=== PATIENT | female | born 1955 | race Caucasian/White ===

== ENCOUNTER 2017-06-16 09:39 | Observation (INO) ==
[2017-06-16] MEDS ORDERED: Ipratropium/Albuterol Neb 3 ML IH ONE (10:15)
[2017-06-16] MEDS ORDERED: predniSONE 20 MG TABLET PO ONE (10:16)
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
[2017-06-16] MEDS ORDERED: Levofloxacin 750 MG/150 ML 750 MG/150 ML BAG IVPB ONE (11:32)
[2017-06-16 12:02] LABS: Basophils % 0.2 %; Eosinophils # 0.3 K/mcL (0.0-0.6); Eosinophils % 2.5 %; Hematocrit 41.5 % (35.3-44.9); Hemoglobin 13.5 g/dL (11.5-15.4); Immature Granulocytes % 0.4 % (0-4); Lymphocytes # 1.7 K/mcL (0.6-4.6); Lymphocytes % 13.7 %; Mean Corpuscular HGB Conc 32.5 g/dL (31.6-35.5); Mean Corpuscular Hemoglobin 27.4 pg (28.0-33.3); Mean Corpuscular Volume 84.3 fL (83.0-100.0); Mean Platelet Volume 11.9 fL (9.4-12.4); Monocytes # 0.9 K/mcL (0.0-1.3); Monocytes % 7.4 %; Neutrophils # 9.3 K/mcL (1.6-8.9); Platelet Count 201 K/mcL (140-400); Red Blood Count 4.92 M/mcL (3.82-4.97); Segmented Neutrophils % 75.8 %
[2017-06-16 12:19] LABS: BUN/Creatinine Ratio 27 (6-26); Blood Urea Nitrogen 17 mg/dL (6-20); Calcium 9.6 mg/dL (8.6-10.3); Carbon Dioxide 27 mEq/L (23-29); Chloride 105 mEq/L (98-107); Glucose 111 mg/dL (70-105); Osmolality,Calculated 282 (280-300); Potassium 3.7 mEq/L (3.5-5.1); Sodium 135 mEq/L (136-145); eGFR For African Americans > 60 (> 60); eGFR For Non-African Americans > 60 (> 60)
[2017-06-16 12:39] LABS: Troponin I < 0.03 ng/mL (< 0.04)
[2017-06-16] MEDS ORDERED: Ondansetron 4 MG/2 ML VIAL IVP ONE (12:53)
[2017-06-16] MEDS ORDERED: *HR* FentaNYL (PF) 100 MCG/2 ML VIAL IVP ONE (12:53)
--- NOTE | 2017-06-16 14:00 | Internal Med History&Physical ---
<Alvaro Theodore - Last Filed: 06/16/17 16:35> Date of Encounter: 06/16/17 Time of Encounter: 14:05 Assessment and Plan (1) Community acquired pneumonia Current visit: Yes Status: Suspected Community acquired pneumonia, unnspecified organism Cough with increased sputum production, shortness of breath, WBC 12.3 with predominate neutrophils, SPO2 91% on room air CT chest demonstrates possible focal consolidations in the left lower lung Blood cultures and sputum cultures pending, Urine S. Pneumo and Legionella Ag pending The patient was started on IV Levaquin in the ED, which I think is appropriate We will continue Levaquin, trend BMP + CBC Scheduled duonebs + prn albuterol. Incentive spirometry to encourage deep inhalation Qualifiers: Laterality: left Lung location: lower lobe of lung Qualified Code(s): J18.1 - Lobar pneumonia, unspecified organism (2) COPD exacerbation Current visit: Yes Status: Acute COPD Exacerbation Continue scheduled Duonebs, prn albuterol Supplemental O2, titrate to SPO2 88-92% Prednisone PO 40mg x 5 days (3) Tibial plateau fracture, left Current visit: Yes Status: Acute LEFT Tibial plateau fracture seen on XR Orthopedics was consulted from the ED, requested CT of the L Knee which is pending Pain management pending ortho consult We will plan for PT/OT Consult pending Ortho recommendations Qualifiers: Encounter type: initial encounter Fracture type: closed Qualified Code(s) : S82.142A - Displaced bicondylar fracture of left tibia, initial encounter for closed fracture (4) Multiple rib fractures Current visit: Yes Status: Acute Right rib 5, 6, 7 non-discplaced fracture without associated pneumothorax These fractures do not compromise respiratory status outside of due to pain We will treat pain Qualifiers: Encounter type: initial encounter Fracture type: closed Laterality: right Qualified Code(s): S22.41XA - Multiple fractures of ribs, right side, initial encounter for closed fracture (5) Osteoporosis Current visit: Yes Status: Acute History of Osteopenia + Osteoporosis We will check PTH, Phosphorous, Ionized Calcium and Vitamin D in the morning May require supplementation Continue Calcium + Vitamin D3 tabs Qualifiers: Osteoporosis type: unspecified Presence of current pathological fracture: with current pathological fracture Encounter type: initial encounter Qualified Code(s): M80.00XA - Age-related osteoporosis with current pathological fracture, unspecified site, initial encounter for fracture (6) Adenoma of left adrenal gland Current visit: Yes Status: Acute B/L Adrenal adenoma found on CT Patient may have had symptoms with poorly controlled HTN and migraines 10 years ago She says those symptoms stopped after she began Lisinopril She will likely require full evaluation of this as an outpatient (7) Adenoma of right adrenal gland Current visit: Yes Status: Acute As above B/L Adrenal adenoma found on CT Patient may have had symptoms with poorly controlled HTN and migraines 10 years ago She says those symptoms stopped after she began Lisinopril She will likely require full evaluation of this as an outpatient (8) Pre-operative examination for internal medicine Current visit: Yes Status: Acute Moderate risk for surgery Patient RCRI Class II, cardiac risk low-moderate EKG shows Sinus arrhythmia with non-specific ST-T Depressions in V1-3 but without acute changes Last TTE 2003, however CXR shows Pulmonary vascular congestion and cardiomegaly We will repeat TTE to evaluate for CHF Pulmonary status is poor, significant COPD with exacerbation and vascular congestion It's possible this patient may require extubation to BiPAP due to severe COPD (9) DVT prophylaxis Current visit: Yes Status: Acute SQ [facility] Internal Medicine - H&P: HPI Chief complaint: Multiple fractures after fall Admitted From: Emergency Dept Plans for Post Hospital Care: Home History of present illness: Ms. Velásquez is a 61 year old female with history of arthritis, COPD, hypertension, hyperlipidemia, peripheral neuropathy and osteoporosis who presented to the ED due to severe pain after a fall. The patient says that on Tuesday she was on her daughter's patio in the backyard and suffered a mechanical fall due to tripping over an exercise bicycle. She says that at that time she twisted and landed on her back. Initially the pain was not too severe, however over the next several days she developed worsening pain to the point that today she was unable to bear any weight on her left knee at all. The pain is mostly centered around her left knee, right ribs, back. She says that the pain is so intense that she has a hard time breathing, and cannot bear weight. She does say that she has tried to take increased doses of Motrin which has been unsuccessful in managing the pain. She says that she recently had a fall about a month ago that was also mechanical in nature due to slipping and twisting her left knee at that time as well. At that time it was also a mechanical fall. Prior to that she never had a fall. She does say that she has had increased cough with sputum production and this time as well. She denies any fevers, chills, sweats, changes in appetite, nausea, vomiting. She has not had any chest pain or significant shortness of breath above baseline, however she does say it is difficult to breathe due to the pain in her ribs when she takes a deep breath. She was associated she has noticed some gurgling when she does take breaths. The patient does not use home O2. The patient does live at home with her daughter and several grandchildren, she admits to smoking about a half a pack to 1 pack a day for approximately 45 years, she does not drink alcohol, and she does not have any other explicit drug use. Past Med Surg Social Fam HX - Past Medical History Medical history: arthritis, COPD, hyperlipidemia, hypertension, osteoporosis, other Psychiatric history: anxiety, depression - Past Surgical History Surgical History: cholecystectomy, herniorrhaphy, hip replacement, hysterectomy - Social History Smoking Status: Current every day smoker Smokeless Tobacco Status: No Alcohol use: none Drug use: none - Family History Mother Living Status: Father Living Status: Internal Medicine - H&P: Meds Albuterol Sulfate [Ventolin Hfa] 2 puff IH Q4H PRN 04/05/15 [History] Atorvastatin [Lipitor] 40 mg PO QAM 04/05/15 [History] Calcium Carbonate/Vitamin D3 [Calcium 1,000 + D3 Caplet] 1 each PO TID 04/05/15 [History] Cyclobenzaprine [Flexeril] 5 mg PO TID PRN 04/05/15 [History] Gabapentin [Neurontin] 600 mg PO TID 04/05/15 [History] Labetalol [Trandate] 400 mg PO BID 04/05/15 [History] Lisinopril/Hydrochlorothiazide [Zestoretic 20-25 mg Tablet] 1 each PO QAM [History] Ranitidine HCl [Zantac] 150 mg PO BID 04/05/15 [History] Ipratropium/Albuterol Neb [Duoneb] 3 ml IH Q6HR 06/16/17 [History] Meloxicam [Mobic] 15 mg PO DAILY 06/16/17 [History] Potassium Chloride [K-Tab ER] 20 meq PO DAILY 06/16/17 [History] Umeclidinium Brm/Vilanterol Tr [Anoro Ellipta 62.5-25 Mcg INH] 1 puff IH DAILY 06/16/17 [History] 3 Allergy/AdvReac Type Severity Reaction Status Date / Time alendronate sodium Allergy See Verified 06/16/17 12:57 [From Fosamax] Comments simvastatin [From Zocor] Allergy Joint Pain Verified 06/16/17 12:57 acetaminophen [From Vicodin] AdvReac Vomiting Verified 06/16/17 12:57 hydrocodone [From Vicodin] AdvReac Vomiting Verified 06/16/17 12:57 ibuprofen [From Vicoprofen] AdvReac Nausea Verified 06/16/17 12:57 Penicillins AdvReac Itching Verified 06/16/17 12:57 All Systems PM: A 10-system review of systems was performed and is negative for pertinent findings except as documented above in the HPI. Review of systems: Constitutional: Denies fevers, chills, weight loss, generalized fatigue Head/Neck: Denies CATES, neck stiffness EENT: Denies vision changes/blurriness, rhinorrhea, congestion, sore throat CVS: Denies chest pain, palpitations, TAYLOR, orthopnea, edema, PND Pulm: Admits to chronic SOB, cough, increased sputum production, wheezing. Denies hemoptysis. GI: Denies abdominal pain, nausea, vomiting, diarrhea, constipation, melena, hematemasis : Admits to baseline urinary incontinence, with no changes in urinary habits Heme: Denies ease of bleeding or bruising MSK: Admits to significant joint pain as per history of present illness Skin: Denies rashes, ulcers, color changes Neuro: Admits to baseline peripheral neuropathy. Denies CATES, focal deficits, ataxia - Constitutional Vitals: Temp Pulse Resp BP Pulse Ox 98.6 F 80 16 135/70 93 06/16/17 09:50 06/16/17 12:50 06/16/17 13:51 06/16/17 13:51 06/16/17 12:50 Exam: Gen.: Vitals noted. No acute distress. AAOx3 HEENT: PERRL/EOMI, oropharynx clear, Normocephalic, atraumatic Neck: Supple. No adenopathy. Cardiac: RRR, no murmur, +S1/S2 Pulmonary: Substantial bilateral expiratory rhonchi, wheezing on inspiration and expiration, with superimposed Rales diffusely and a prolonged expiratory phase Abdomen: soft, nontender, BS noted, no guarding Back: Nontender throughout. MSK: The patient has tenderness to palpation of the right chest wall. Left LE is wrapped in margarita bandage with no obvious deformity. Distal sensation and motor function intact. Extremities: no BLE edema, nontender calf, no cyanosis or clubbing. MSK as above Neuro: A&Ox3, moves all extremities, no focal deficits Psych: Appropriate mood and behavior Internal Med - H&P Results - Labs CBC & Chem 7: 06/16/17 11:31 06/16/17 11:31 - Diagnostic Studies CT scan - chest Status: image reviewed by me Additional comments: CT Thoracic spine with significant motion artifact appears to demonstrate b/l ground glass appearance in lungs with possible focal consolidation in left lower lobe Chest x-ray Status: image reviewed by me Additional comments: CXR PA shows cardiomegaly with increased pulmonary vascular congestion <Ben Zamora - Last Filed: 06/16/17 17:16> Date of Encounter: 06/16/17 Internal Medicine - H&P: HPI History of present illness: Ms. Velásqeuz is a 61 year old female All Systems PM: A 10-system review of systems was performed and is negative for pertinent findings except as documented above in the HPI. - Constitutional Vitals: Temp Pulse Resp BP Pulse Ox 98.6 F 80 16 135/70 90 06/16/17 09:50 06/16/17 12:50 06/16/17 16:04 06/16/17 13:51 06/16/17 16:04 Internal Med - H&P Results - Labs CBC & Chem 7: 06/16/17 11:31 06/16/17 11:31 Labs: Urine 06/16/17 Range/Units 14:40 Urine Color Yellow (Yellow) Urine Clarity Clear (Clear) Urine pH 6.5 (5.0-8.0) pH Units Ur Specific [place] 1.013 (1.010-1.025) Urine Protein Negative (Neg-Trace) mg/dL Urine Glucose (UA) Normal (Normal) mg/dL - Attending Attestation I examined this patient and my medical decision-making was reviewed with the Resident Physician. I agree with the documented findings, disposition and treatment plan as described except to the extent set forth below Seen and examined at bedside, hx of COPD, OP 9no treatment due to side effects, ) HTN, Fatty liver, tobacco abuse,, admitted to observation following tibia plateau fracture and multiple rib fractures. Also endorsed worsening cough with sputum production. Chest exam with diffuse wheezing and rhonchi worse in both bases. Imaging shows cardiomegaly with bilateral PVC, Bilateral adrenal adenomas , diffuse osteopenia. DJD. Agree with treatment for suspected PNA, COPDE, Check Vit D levels, Obtain ECHO, fluid restriction, continue home meds, Pain control, incentive spirometry, bilateral adenoma eval as out-patient, ortho eval Rest as in the resident physician's documentation
[2017-06-16] MEDS ORDERED: Naloxone 0.4 MG/ML INJ IVP PRN (14:03)
[2017-06-16 15:43] LABS: Bilirubin,Urine Negative (Negative); Blood,Urine Negative (Negative); Clarity,Urine Clear (Clear); Color,Urine Yellow (Yellow); Glucose,Urine (UA) Normal (Normal); Ketones,Urine Negative (Negative); Leukocyte Esterase,Urine Negative (Negative); Nitrite,Urine Negative (Negative); PH,Urine 6.5 pH Units (5.0-8.0); Protein,Urine Negative (Neg-Trace); Specific Gravity,Urine 1.013 (1.010-1.025); Urobilinogen,Urine Normal (Normal)
[2017-06-16] MEDS: Gabapentin 300 MG CAPSULE PO SCH ×2 (15:49→20:28)
[2017-06-16] MEDS: Ipratropium/Albuterol Neb 3 ML IH SCH ×2 (16:02→20:07)
[2017-06-16] MEDS ORDERED: Ipratropium/Albuterol Neb 3 ML IH SCH (18:00)
[2017-06-16] MEDS: *HR* Enoxaparin 30 MG/0.3 ML SYRINGE SQ SCH (18:13)
[2017-06-16] MEDS ORDERED: Perflutren Lipid Microsphere 1.3 ML in 0.9 % Sodium Chloride 8.7 ML IVP ONE (18:18)
[2017-06-16] MEDS ORDERED: Perflutren Lipid Microsphere 2 ML VIAL ONE (18:30)
[2017-06-16] MEDS: *HR* OxyCODONE Immed Rel 5 MG TABLET PO PRN (18:54)
--- NOTE | 2017-06-16 19:46 | Orthopedic Consult Note ---
Date of Encounter: 06/16/17 Time of Encounter: 19:44 Assessment and Plan (1) Tibial plateau fracture, left Current Visit: Yes Status: Acute I did discuss the diagnosis in detail with the patient. She has a lateral tibial plateau fracture which is nondisplaced on the left. My recommendation is to proceed with nonoperative management. She is placed in a posterior long- leg splint and we will apply a knee immobilizer over this. Nonweightbearing to left lower extremity. X-ray in 1 week to evaluate for displacement. Rib fractures per the primary team. Orthopedically stable for discharge. Follow- up in the office in 1 week for clinical and radiographic reevaluation. I will be available as needed. Qualifiers: Encounter type: initial encounter Fracture type: closed Qualified Code(s) : S82.142A - Displaced bicondylar fracture of left tibia, initial encounter for closed fracture History of Present Illness HPI: Ms. Velásquez is a 61 year old female who is admitted to the hospitalist after a non-syncopal fall resulted in a left tibial plateau fracture. I was consulted to assist in the evaluation and management of this patient. The fall happened earlier today and she endorsed left knee pain. She also sustained rib fractures on the right. She complains of these as isolated injuries. No headaches, neck pain, abdominal pain, bilateral partially pain, and right lower extremity pain. The left knee pain is sharp in nature and achy. It is well localized. No numbness, tingling, or other signs or symptoms. The pain is worse with movement of the left lower extremity and better with rest. Past Med Surg Social Fam HX - Past Medical History Medical history: arthritis, COPD, hyperlipidemia, hypertension, osteoporosis, other Psychiatric history: anxiety, depression - Past Surgical History Surgical History: cholecystectomy, herniorrhaphy, hip replacement, hysterectomy - Social History Smoking Status: Current every day smoker Packs per day: 1 Smokeless Tobacco Status: No Alcohol use: none Drug use: none - Family History Mother Living Status: Father Living Status: Medications and Allergies Albuterol Sulfate [Ventolin Hfa] 2 puff IH Q4H PRN 04/05/15 [History] Atorvastatin [Lipitor] 40 mg PO QAM 04/05/15 [History] Calcium Carbonate/Vitamin D3 [Calcium 1,000 + D3 Caplet] 1 each PO TID 04/05/15 [History] Cyclobenzaprine [Flexeril] 5 mg PO TID PRN 04/05/15 [History] Gabapentin [Neurontin] 600 mg PO TID 04/05/15 [History] Labetalol [Trandate] 400 mg PO BID 04/05/15 [History] Lisinopril/Hydrochlorothiazide [Zestoretic 20-25 mg Tablet] 1 each PO QAM [History] Ranitidine HCl [Zantac] 150 mg PO BID 04/05/15 [History] Ipratropium/Albuterol Neb [Duoneb] 3 ml IH Q6HR 06/16/17 [History] Meloxicam [Mobic] 15 mg PO DAILY 06/16/17 [History] Potassium Chloride [K-Tab ER] 20 meq PO DAILY 06/16/17 [History] Umeclidinium Brm/Vilanterol Tr [Anoro Ellipta 62.5-25 Mcg INH] 1 puff IH DAILY 06/16/17 [History] 3 Allergy/AdvReac Type Severity Reaction Status Date / Time alendronate sodium Allergy See Verified 06/16/17 12:57 [From Fosamax] Comments simvastatin [From Zocor] Allergy Joint Pain Verified 06/16/17 12:57 acetaminophen [From Vicodin] AdvReac Vomiting Verified 06/16/17 12:57 hydrocodone [From Vicodin] AdvReac Vomiting Verified 06/16/17 12:57 ibuprofen [From Vicoprofen] AdvReac Nausea Verified 06/16/17 12:57 Penicillins AdvReac Itching Verified 06/16/17 12:57 All Systems Reviewed: The remainder of the systems were reviewed and are negative Physical Exam - Constitutional Vitals: Temp Pulse Resp BP Pulse Ox 98.6 F 80 16 135/70 90 06/16/17 09:50 06/16/17 12:50 06/16/17 16:04 06/16/17 13:51 06/16/17 16:04 Constitutional -Vitals reviewed -The patient is well developed and well nourished. -Mood is pleasant. -The patient is well groomed. Psychiatric -The patient is fully alert and oriented x 3. Respiratory: -Respiratory effort normal Abdomen: -Soft abdomen -Non tender -Non distended: Left upper extremity: -No deformities. The overlying skin is intact. No obvious signs of acute trauma. -No tenderness to palpation throughout. -No significant pain with passive motion of the shoulder, elbow, wrist, and fingers within the limits of the bed. -Able to make an "OK" sign, cross the index and long fingers, and extend the thumb. -Sensation grossly intact to light touch throughout the median, radial, and ulnar distributions. -Radial pulse is present; Fingers have good capillary refill. Right upper extremity: -No deformities. The overlying skin is intact. No obvious signs of acute trauma. -No tenderness to palpation throughout. -No significant pain with passive motion of the shoulder, elbow, wrist, and fingers within the limits of the bed. -Able to make an "OK" sign, cross the index and long fingers, and extend the thumb. -Sensation grossly intact to light touch throughout the median, radial, and ulnar distributions. -Radial pulse is present; Fingers have good capillary refill. Left lower extremity: -No deformities. The overlying skin is intact. No obvious signs of acute trauma. -Tenderness to palpation over the proximal lateral tibia with a palpable knee effusion. -Thigh and leg compartments are soft and compressible. -I did not range the knee given her known injury. -No pain with passive motion of the hip, ankle, and toes within the limits of the bed. -No pain with axial loading of the thigh. -Able to dorsiflex and plantarflex the ankle and toes. -Sensation is grossly intact to light touch throughout the sural, saphenous, superficial peroneal, and deep peroneal distributions. -Toes have good capillary refill. Right lower extremity: -No deformities. The overlying skin is intact. No obvious signs of acute trauma. -No tenderness to palpation throughout. -No pain with passive motion of the hip, knee, ankle, and toes within the limits of the bed. -No pain with axial loading of the thigh. -Able to dorsiflex and plantarflex the ankle and toes. -Sensation is grossly intact to light touch throughout the sural, saphenous, superficial peroneal, and deep peroneal distributions. -Toes have good capillary refill. X-rays of the left knee as well as CT scan shows a nondisplaced lateral tibial plateau fracture Results - Labs Result Diagrams: 06/16/17 11:31 06/16/17 11:31 Labs: Abnormal lab results WBC 12.3 K/mcL (4.3-11.1) H 06/16/17 11:31 MCH 27.4 pg (28.0-33.3) L 06/16/17 11:31 RDW 15.0 % (11.5-14.5) H 06/16/17 11:31 Neutrophils # 9.3 K/mcL (1.6-8.9) H 06/16/17 11:31 Sodium 135 mEq/L (136-145) L 06/16/17 11:31 BUN/Creatinine Ratio 27 (6-26) H 06/16/17 11:31 Glucose 111 mg/dL (70-105) H 06/16/17 11:31 All other labs normal. Consult Discharge Plan - Plan Referrals: Noemi Huddleston [Primary Care Provider] -
[2017-06-17] MEDS: Ipratropium/Albuterol Neb 3 ML IH SCH ×6 (01:00→20:44)
[2017-06-17] MEDS: *HR* OxyCODONE Immed Rel 5 MG TABLET PO PRN ×4 (01:21→23:28)
[2017-06-17] MEDS: *HR* Enoxaparin 30 MG/0.3 ML SYRINGE SQ SCH ×2 (05:30→19:23)
[2017-06-17 06:26] LABS: Hematocrit 41.5 % (35.3-44.9); Hemoglobin 12.9 g/dL (11.5-15.4); Mean Corpuscular HGB Conc 31.1 g/dL (31.6-35.5); Mean Corpuscular Hemoglobin 26.9 pg (28.0-33.3); Mean Corpuscular Volume 86.6 fL (83.0-100.0); Mean Platelet Volume 11.9 fL (9.4-12.4); Platelet Count 209 K/mcL (140-400); Red Blood Count 4.79 M/mcL (3.82-4.97); Red Cell Distribution Width 15.1 % (11.5-14.5)
[2017-06-17 06:33] LABS: Alanine Aminotransferase 15 Units/L (7-52); Albumin 3.7 g/dL (3.5-5.7); Albumin/Globulin Ratio 1.3 (1.1-2.2); Alkaline Phosphatase 106 Units/L (34-104); Aspartate Amino Transferase 10 Units/L (13-39); BUN/Creatinine Ratio 24 (6-26); Bilirubin,Total 0.3 mg/dL (0.3-1.0); Blood Urea Nitrogen 16 mg/dL (6-20); Calcium 9.2 mg/dL (8.6-10.3); Carbon Dioxide 28 mEq/L (23-29); Chloride 100 mEq/L (98-107); Globulin 2.8 g/dL (2.4-3.5); Glucose 139 mg/dL (70-105); Osmolality,Calculated 291 (280-300); Phosphorous 3.1 mg/dL (2.7-4.5); Potassium 3.2 mEq/L (3.5-5.1); Sodium 139 mEq/L (136-145); Total Protein 6.5 g/dL (6.4-8.9); eGFR For African Americans > 60 (> 60); eGFR For Non-African Americans > 60 (> 60)
[2017-06-17 06:47] LABS: Thyroid Stimulating Hormone 0.735 mcIU/mL (0.340-5.600)
[2017-06-17] MEDS: Levofloxacin 750 MG/150 ML 750 MG/150 ML BAG IVPB SCH (08:13)
[2017-06-17] MEDS: predniSONE 20 MG TABLET PO SCH (08:15)
[2017-06-17] MEDS: Gabapentin 300 MG CAPSULE PO SCH ×3 (08:15→20:46)
[2017-06-17] MEDS: Cholecalciferol (D-3) 1,000 UNIT TABLET PO SCH (08:16)
[2017-06-17] MEDS: Pantoprazole 40 MG VIAL IVP SCH (08:16)
[2017-06-17] MEDS ORDERED: Patient Taking Own Medication 1 EACH IH SCH (09:00)
[2017-06-17 09:23] LABS: Magnesium 1.9 mg/dL (1.6-2.6)
--- NOTE | 2017-06-17 13:31 | Internal Med Progress Note ---
<Alvaro Theodore - Last Filed: 06/17/17 13:27> Date of Encounter: 06/17/17 Time of Encounter: 09:30 - Assessment and plan (1) Community acquired pneumonia Current Visit: Yes Status: Suspected Assessment and plan: Community acquired pneumonia, unnspecified organism Cough with increased sputum production, shortness of breath, WBC 11.0 with predominate neutrophils, SPO2 91% on room air CT chest demonstrates possible focal consolidations in the left lower lung Blood cultures and sputum cultures pending, Urine S. Pneumo and Legionella Ag pending The patient was started on IV Levaquin in the ED, which I think is appropriate We will continue Levaquin, trend BMP + CBC Scheduled duonebs + prn albuterol. Incentive spirometry to encourage deep inhalation Qualifiers: Laterality: left Lung location: lower lobe of lung Qualified Code(s): J18.1 - Lobar pneumonia, unspecified organism (2) COPD exacerbation Current Visit: Yes Status: Acute Assessment and plan: COPD Exacerbation Continue scheduled Duonebs, prn albuterol Supplemental O2, titrate to SPO2 88-92% Prednisone PO 40mg Day 2 of 5 days (3) Tibial plateau fracture, left Current Visit: Yes Status: Acute Assessment and plan: Left Tibial plateau fracture Orthopedic surgery recommends nonoperative therapy Splinting with non-weight bearing PT/OT Evaluation today Follow-up as outpatient Qualifiers: Encounter type: initial encounter Fracture type: closed Qualified Code(s) : S82.142A - Displaced bicondylar fracture of left tibia, initial encounter for closed fracture (4) Multiple rib fractures Current Visit: Yes Status: Acute Assessment and plan: Right rib 5, 6, 7 non-discplaced fracture without associated pneumothorax These fractures do not compromise respiratory status outside of due to pain We will treat pain Qualifiers: Encounter type: initial encounter Fracture type: closed Laterality: right Qualified Code(s): S22.41XA - Multiple fractures of ribs, right side, initial encounter for closed fracture (5) Osteoporosis Current Visit: Yes Status: Acute Assessment and plan: Hx of osteoporosis and osteopenia Continue calcium supplement We will give 50,000u Vitamin D Qualifiers: Osteoporosis type: unspecified Presence of current pathological fracture: with current pathological fracture Encounter type: initial encounter Qualified Code(s): M80.00XA - Age-related osteoporosis with current pathological fracture, unspecified site, initial encounter for fracture (6) Adenoma of left adrenal gland Current Visit: Yes Status: Acute Assessment and plan: B/L Adrenal adenoma found on CT Patient may have had symptoms with poorly controlled HTN and migraines 10 years ago She says those symptoms stopped after she began Lisinopril She will likely require full evaluation of this as an outpatient (7) Adenoma of right adrenal gland Current Visit: Yes Status: Acute Assessment and plan: As above (8) Hyperparathyroidism Current Visit: Yes Status: Acute Assessment and plan: Hyperparathyroidism, likely primary High normal serum calcium, PTH 89.9, Phos 3.1, Vitamin D 10 The patient has multiple fractures, and history of osteoporosis Given comorbid b/l adrenal adenomas found on CT, MEN Type 1 remains in the differential We will refer to endocrinology at time of discharge (9) DVT prophylaxis Current Visit: Yes Status: Acute Assessment and plan: SQ Lovenox - Subjective Interval history: The patient is resting comfortably in bed at time of examination. She says that she still having significant pain, specifically in the right ribs. She is concerned that this is preventing her from being able to cough or breathing effectively. She has not been coughing up purulent sputum as much as she feels she needs to. She was not using incentive spirometry overnight. - Constitutional Vitals: Temp Pulse Resp BP Pulse Ox 97.6 F 75 22 104/54 97 06/17/17 12:28 06/17/17 12:28 06/17/17 12:28 06/17/17 12:28 06/17/17 12:28 Exam: Gen.: Vitals noted. No acute distress. AAOx3 HEENT: Normocephalic, atraumatic Neck: Supple. No adenopathy. Cardiac: RRR, no murmur, +S1/S2 Pulmonary: Substantial bilateral expiratory rhonchi, wheezing on inspiration and expiration, with superimposed Rales diffusely and a prolonged expiratory phase Abdomen: soft, nontender, BS noted, no guarding Back: Nontender throughout. MSK: The patient has tenderness to palpation of the right chest wall. Left LE is wrapped in margarita bandage with no obvious deformity. Distal sensation and motor function intact. Extremities: no BLE edema, nontender calf, no cyanosis or clubbing. Left leg wrapped in margarita bandage. appropriate motor and sensory function Neuro: A&Ox3, moves all extremities, no focal deficits Psych: Appropriate mood and behavior Internal Medicine: Result - Labs CBC & Chem 7: 06/17/17 05:49 06/17/17 05:49 Labs: Short CBC 06/17/17 Range/Units 05:49 WBC 11.0 (4.3-11.1) K/mcL Hgb 12.9 (11.5-15.4) g/dL Hct 41.5 (35.3-44.9) % Plt Count 209 (140-400) K/mcL BMP 06/17/17 05:49 Sodium 139 Potassium 3.2 L Chloride 100 Carbon Dioxide 28 BUN 16 Creatinine 0.67 Glucose 139 H Calcium 9.2 Liver Function 06/17/17 Range/Units 05:49 Total Bilirubin 0.3 (0.3-1.0) mg/dL AST 10 L (13-39) Units/L ALT 15 (7-52) Units/L Alkaline Phosphatase 106 H (34-104) Units/L Albumin 3.7 (3.5-5.7) g/dL Urine 06/16/17 Range/Units 14:40 Urine Color Yellow (Yellow) Urine Clarity Clear (Clear) Urine pH 6.5 (5.0-8.0) pH Units Ur Specific [place] 1.013 (1.010-1.025) Urine Protein Negative (Neg-Trace) mg/dL Urine Glucose (UA) Normal (Normal) mg/dL Consult Discharge Plan - Plan Additional Instructions: Patient would like to be seen by Dr. Theodore in the [facility] Referrals: Noemi Huddleston [Primary Care Provider] - Roxanne Patten MD [Partnered Physician] - <Ben Zamora - Last Filed: 06/17/17 14:11> Date of Encounter: 06/17/17 - Constitutional Vitals: Temp Pulse Resp BP Pulse Ox 97.6 F 75 22 104/54 97 06/17/17 12:28 06/17/17 12:28 06/17/17 12:28 06/17/17 12:28 06/17/17 12:28 Internal Medicine: Result - Labs CBC & Chem 7: 06/17/17 05:49 06/17/17 05:49 Labs: Short CBC 06/17/17 Range/Units 05:49 WBC 11.0 (4.3-11.1) K/mcL Hgb 12.9 (11.5-15.4) g/dL Hct 41.5 (35.3-44.9) % Plt Count 209 (140-400) K/mcL BMP 06/17/17 05:49 Sodium 139 Potassium 3.2 L Chloride 100 Carbon Dioxide 28 BUN 16 Creatinine 0.67 Glucose 139 H Calcium 9.2 Liver Function 06/17/17 Range/Units 05:49 Total Bilirubin 0.3 (0.3-1.0) mg/dL AST 10 L (13-39) Units/L ALT 15 (7-52) Units/L Alkaline Phosphatase 106 H (34-104) Units/L Albumin 3.7 (3.5-5.7) g/dL Urine 06/16/17 Range/Units 14:40 Urine Color Yellow (Yellow) Urine Clarity Clear (Clear) Urine pH 6.5 (5.0-8.0) pH Units Ur Specific [place] 1.013 (1.010-1.025) Urine Protein Negative (Neg-Trace) mg/dL Urine Glucose (UA) Normal (Normal) mg/dL - Attending Attestation I examined this patient and my medical decision-making was reviewed with the Resident Physician. I agree with the documented findings, disposition and treatment plan as described except to the extent set forth below Seen and examined at bedside She is being manged for suspected PNA, COPDE, Rib fractures, L tibial plateau fracture No new complains Say she still cannot produce sputum Continue treatment for suspected PNA, COPDE, Vit D is low, replaced with high dose, Follow ECHO reports , fluid restriction, continue home meds, Pain control , incentive spirometry, bilateral adenoma eval as out-patient, ortho eval noted and appreciated Rest as in the resident physician's documentation
--- NOTE | 2017-06-17 16:20 | Event Note ---
Date of Encounter: 06/17/17 Time of Encounter: 15:50 I was called to the bedside by the nurse who reported that the patient was complaining of dizziness and a feeling that she would fall out of bed, along with a sensation that she had forgotten how to swallow. When questioned, the patient says that she got suddenly cold, sweaty, and dizzy before feeling like she was going to fall out of her bed. She says that in addition to this, she felt that she had forgotten how to swallow. This lasted for approximately 10 min , and occurred twice. She says that immediately before this event, she was walking with PT/OT. This has never happened to her before. She did not lose consciousness. Upon being paged, I ordered stat EKG, Blood glucose, troponin, and ABG. The patient has no neurological abnormalities or deficits. Vitals were obtained, and they were in normal range. EKG did show sinus rhythm with ST-T wave changes in lateral leads, including flattening of ST-T waves in V1-2 and J- point elevation in Lead II. The patient was placed on telemetry. I believe that this is likely due to symptomatic hypotension vs. vasovagal phenomenon. I will trend troponins, and we will monitor for changes in neurological status. Additionally, I will hold the patient's Labetalol to prevent episodes of hypotension from occurring. I spoke at length with the patient and she understands the current workup and treatment plan. All questions were answered.
[2017-06-17 16:44] LABS: ABG Base Excess 6 mEq/L (-2 to 3); ABG HCO3 31 mEq/L (21-27); ABG Oxygen Saturation 90 % (95-98); ABG PCO2 48 mmHg (35-45); ABG PH 7.42 pH Units (7.32-7.45); ABG PO2 58 mmHg (85-104); ABG TCO2 33 mEq/L (20-26)
[2017-06-18] MEDS: Ipratropium/Albuterol Neb 3 ML IH SCH ×4 (00:12→11:42)
[2017-06-18] MEDS: *HR* OxyCODONE Immed Rel 5 MG TABLET PO PRN ×2 (05:28→11:46)
[2017-06-18] MEDS: *HR* Enoxaparin 30 MG/0.3 ML SYRINGE SQ SCH (05:28)
[2017-06-18 05:42] LABS: Basophils % 0.1 %; Eosinophils # 0.1 K/mcL (0.0-0.6); Eosinophils % 0.7 %; Hematocrit 39.5 % (35.3-44.9); Hemoglobin 12.6 g/dL (11.5-15.4); Immature Granulocytes % 0.7 % (0-4); Lymphocytes % 19.6 %; Mean Corpuscular HGB Conc 31.9 g/dL (31.6-35.5); Mean Corpuscular Hemoglobin 27.2 pg (28.0-33.3); Mean Corpuscular Volume 85.3 fL (83.0-100.0); Mean Platelet Volume 11.7 fL (9.4-12.4); Monocytes # 0.8 K/mcL (0.0-1.3); Monocytes % 7.5 %; Neutrophils # 7.2 K/mcL (1.6-8.9); Platelet Count 207 K/mcL (140-400); Red Blood Count 4.63 M/mcL (3.82-4.97); Red Cell Distribution Width 15.1 % (11.5-14.5); Segmented Neutrophils % 71.4 %
[2017-06-18 06:03] LABS: BUN/Creatinine Ratio 26 (6-26); Blood Urea Nitrogen 18 mg/dL (6-20); Calcium 9.4 mg/dL (8.6-10.3); Carbon Dioxide 29 mEq/L (23-29); Chloride 102 mEq/L (98-107); Glucose 126 mg/dL (70-105); Osmolality,Calculated 287 (280-300); Potassium 3.9 mEq/L (3.5-5.1); Sodium 137 mEq/L (136-145); eGFR For African Americans > 60 (> 60); eGFR For Non-African Americans > 60 (> 60)
[2017-06-18] MEDS: Levofloxacin 750 MG/150 ML 750 MG/150 ML BAG IVPB SCH (08:23)
[2017-06-18 08:29] VITALS: BP 147/88
[2017-06-18] MEDS: Pantoprazole 40 MG VIAL IVP SCH (08:29)
[2017-06-18] MEDS: predniSONE 20 MG TABLET PO SCH (08:33)
[2017-06-18] MEDS: Gabapentin 300 MG CAPSULE PO SCH (08:34)
[2017-06-18] MEDS: Cholecalciferol (D-3) 1,000 UNIT TABLET PO SCH (08:34)
[2017-06-18 08:50] LABS: VBG HCO3 30 mEq/L (21-27); VBG Ionized Calcium 1.13 mmol/L (1.15-1.35); VBG PCO2 55 mmHg (41-51); VBG PH 7.34 pH Units (7.32-7.42); VBG PO2 64 mmHg (25-50)
--- NOTE | 2017-06-18 09:22 | Discharge Summary ---
<Alvaro Theodore - Last Filed: 06/18/17 11:34> - NOTES TO OUTPATIENT PROVIDER Notes to Outpatient Provider: The patient was admitted for multiple rib fractures, CAP, and COPDE. She does have a history of osteoporosis which has not been explained previously. On CT of the abdomen, b/l adrenal adenomas were found, and PTH studies seem to indicate a possible primary hyperparathyroidism. We did replete Vitamin D, however she will likely require workup for PTH disorders. We did give a referral to Endocrinology. Orders not resulted at time of discharge: Pending orders 06/16/17 14:27 Culture,Blood [BC] Stat 06/16/17 14:58 Sputum Culture [Culture,Sputum with Gram Stain] [RM] Routine 06/17/17 11:44 Parathormone Related Peptide AM 0400 Date of Encounter: 06/18/17 Time of Encounter: 08:40 - Discharge Diagnosis (1) Tibial plateau fracture, left Priority: Primary Status: Acute Qualifiers: Encounter type: initial encounter Fracture type: closed Qualified Code(s) : S82.142A - Displaced bicondylar fracture of left tibia, initial encounter for closed fracture (2) Community acquired pneumonia Priority: Secondary Status: Suspected Qualifiers: Laterality: left Lung location: lower lobe of lung Qualified Code(s): J18.1 - Lobar pneumonia, unspecified organism (3) COPD exacerbation Priority: Secondary Status: Acute (4) Multiple rib fractures Priority: Secondary Status: Acute Qualifiers: Encounter type: initial encounter Fracture type: closed Laterality: right Qualified Code(s): S22.41XA - Multiple fractures of ribs, right side, initial encounter for closed fracture (5) Osteoporosis Priority: Secondary Status: Acute Qualifiers: Osteoporosis type: unspecified Presence of current pathological fracture: with current pathological fracture Encounter type: initial encounter Qualified Code(s): M80.00XA - Age-related osteoporosis with current pathological fracture, unspecified site, initial encounter for fracture (6) Adenoma of left adrenal gland Priority: Secondary Status: Acute (7) Adenoma of right adrenal gland Priority: Secondary Status: Acute (8) Hyperparathyroidism Priority: Secondary Status: Acute (9) DVT prophylaxis Priority: Secondary Status: Acute Hospital course: Ms. Velásquez is a 61 year old female with history of arthritis, COPD, hypertension, hyperlipidemia, peripheral neuropathy and osteoporosis who presented to the ED due to severe pain after a mechanical fall. According to the patient, she turned around and then slipped and fell over an exercise bike injuring both her right ribs and her left knee. On arrival, it was found that she had multiple rib fractures including the right fifth sixth and seventh rib, as well as a left tibial plateau fracture. She was evaluated by orthopedic surgery who determined that she is a good candidate for outpatient physical therapy. At the time of admission it was also noted that the patient had significant cough and dyspnea, and her CT looked like it demonstrated a possible consolidation in the left lower lobe significant for pneumonia. She also does have a history of COPD, severity is a component of COPD exacerbation as well. The patient was being treated for this with IV Levaquin, and prednisone. Finally, on CT of the thoracic and lumbar spine, it was noted that the patient does seem to have bilateral adrenal adenomas which were previously unknown. Due to the patient's osteoporosis, we did look into secondary causes. The patient typically runs high normal to high in calcium, and it was found that she does have an elevation in PTH with a normal phosphorus. Additionally her vitamin D was substantially low. This is suspicious for primary hyperparathyroidism, which in conjunction with her adrenal adenomas may be indicative of MEN1 or other endocrinological syndrome. The patient was given a referral to endocrinology on her discharge. At the time of discharge, she has returned nearly to her baseline respiratory status. She will be discharged to home with completion of antibiotic and steroid course, with short-term pain medication, referral to endocrinology, and close follow-up with primary care. She should be seen by primary care within 3-5 days. The patient understands and agrees to this plan. Discharge discussed with: patient, family Time spent discussing smoking cessation with patient: more than 10 minutes - Time Spent with Patient Total time spent providing and/or coordinating discharge services: - Discharge Medications Prescriptions: Ipratropium/Albuterol Neb [Duoneb] 3 ml IH [id number] 12 Days inhsol OxyCODONE Immed Rel [Roxicodone 5 MG] 10 mg PO Q8HR PRN 3 Days #9 tablet PRN Reason: Severe Pain Ergocalciferol (VITAMIN D2) [Vitamin D2] 50,000 unit PO QWEEK #3 capsule GuaiFENesin ER [Mucinex] 600 mg PO BID 12 Days tbbp.12hr levoFLOXacin [Levaquin] 750 mg PO DAILY #2 tablet predniSONE [PredniSONE] 40 mg PO DAILY #4 tablet Home Medications: Albuterol Sulfate [Ventolin Hfa] 2 puff IH Q4H PRN 04/05/15 [History] Atorvastatin [Lipitor] 40 mg PO QAM 04/05/15 [History] Calcium Carbonate/Vitamin D3 [Calcium 1,000 + D3 Caplet] 1 each PO TID 04/05/15 [History] Cyclobenzaprine [Flexeril] 5 mg PO TID PRN 04/05/15 [History] Gabapentin [Neurontin] 600 mg PO TID 04/05/15 [History] Labetalol [Trandate] 200 mg PO BID 04/05/15 [History] Lisinopril/Hydrochlorothiazide [Zestoretic 20-25 mg Tablet] 1 each PO QAM [History] Ranitidine HCl [Zantac] 150 mg PO BID 04/05/15 [History] Ipratropium/Albuterol Neb [Duoneb] 3 ml IH Q6HR 06/16/17 [History] Meloxicam [Mobic] 15 mg PO DAILY 06/16/17 [History] Potassium Chloride [K-Tab ER] 20 meq PO DAILY 06/16/17 [History] Umeclidinium Brm/Vilanterol Tr [Anoro Ellipta 62.5-25 Mcg INH] 1 puff IH DAILY 06/16/17 [History] Cholecalciferol (D-3) [Vitamin D] 1,000 unit PO DAILY tablet 06/18/17 [Rx] Ergocalciferol (VITAMIN D2) [Vitamin D2] 50,000 unit PO QWEEK #3 capsule [Rx] GuaiFENesin ER [Mucinex] 600 mg PO BID 12 Days tbbp.12hr 06/18/17 [Rx] Ipratropium/Albuterol Neb [Duoneb] 3 ml IH [id number] 12 Days inhsol 06/18/17 [Rx] OxyCODONE Immed Rel [Roxicodone 5 MG] 10 mg PO Q8HR PRN 3 Days #9 tablet [Rx] levoFLOXacin [Levaquin] 750 mg PO DAILY #2 tablet 06/18/17 [Rx] predniSONE [PredniSONE] 40 mg PO DAILY #4 tablet 06/18/17 [Rx] Allergies/Adverse Reactions: 3 Allergy/AdvReac Type Severity Reaction Status Date / Time alendronate sodium Allergy See Verified 06/16/17 12:57 [From Fosamax] Comments simvastatin [From Zocor] Allergy Joint Pain Verified 06/16/17 12:57 acetaminophen [From Vicodin] AdvReac Vomiting Verified 06/16/17 12:57 hydrocodone [From Vicodin] AdvReac Vomiting Verified 06/16/17 12:57 ibuprofen [From Vicoprofen] AdvReac Nausea Verified 06/16/17 12:57 Penicillins AdvReac Itching Verified 06/16/17 12:57 Date of admission: 06/16/17 13:36 Primary care physician: Noemi Huddleston Consults: 06/17/17 08:45 Consult to Physical Therapy [CONS] Routine Comment: Evaluate, develop and implement POC Reason for Consult: Discharge planning Does patient have active BEDREST order?: No Is patient medically & hemodynamically stable?: Yes Discharging clinician: Alvaro Theodore Anticipated date of discharge: 06/18/17 - Constitutional Vitals: Temp Pulse Resp BP Pulse Ox 97.6 F 84 16 147/88 96 06/18/17 08:24 06/18/17 08:24 06/18/17 08:24 06/18/17 08:24 06/18/17 08:24 Exam: Gen: Vitals noted. No acute distress. AAOx3 HEENT: Normocephalic, atraumatic Neck: Supple. No adenopathy. Cardiac: RRR, no murmur, +S1/S2 Pulmonary: Interval improvment in wheezing, only mild wheezing and rhonchi noted on exam Abdomen: soft, nontender, BS noted, no guarding Back: Nontender throughout. MSK: The patient has tenderness to palpation of the right chest wall. Left LE is wrapped in margarita bandage with no obvious deformity. Distal sensation and motor function intact. Extremities: no BLE edema, nontender calf, no cyanosis or clubbing. Left leg wrapped in margarita bandage. appropriate motor and sensory function Neuro: A&Ox3, moves all extremities, no focal deficits Psych: Appropriate mood and behavior - Patient Status Disposition: Home, Self-Care Condition: Good Functional capacity at discharge: wheelchair bound Overall status at discharge: patient is progressing back to baseline - Discharge Instructions Follow Up With: Roxanne Patten MD [Partnered Physician] - Alvaro Theodore DO [Resident] - Additional Instructions: Patient would like to be seen by Dr. Theodore in the [facility]. For hospital follow-ups, the patient may see any provider in the residency clinic. Patient to make appointment with ortho doctor. Patient would like to see her own ortho dr at [facility]. -Patient should continue home BP meds -Continue Levaquin (Levofloxacin) and prednisone for 2 days. Continue inhaled duonebs as needed ever 4 hours. -Some residual cough is to be expected, however if it worsens or the patient develops significant fever, chills, sweats, or malaise, she should return to the ED. -Return to the ED for dizziness, loss of consciousness, or falls -Limit weight bearing activities to those approved by orthopedic doctor and physical therapy -Continue to attempt smoking cessation - Diet and Activity Activity: as per physical therapy Diet: advance to your usual diet <Ben Zamora T - Last Filed: 06/18/17 18:22> Orders not resulted at time of discharge: Pending orders 06/16/17 14:27 Culture,Blood [BC] Stat 06/17/17 11:44 Parathormone Related Peptide AM 0400 Date of Encounter: 06/18/17 Hospital course: Ms. Velásquez is a 61 year old female - Time Spent with Patient Total time spent providing and/or coordinating discharge services: Date of admission: 06/16/17 13:36 Primary care physician: Noemi Huddleston Consults: 06/17/17 08:45 Consult to Physical Therapy [CONS] Routine Comment: Evaluate, develop and implement POC Reason for Consult: Discharge planning Does patient have active BEDREST order?: No Is patient medically & hemodynamically stable?: Yes - Constitutional Vitals: Temp Pulse Resp BP Pulse Ox 97.6 F 84 16 147/88 96 06/18/17 08:24 06/18/17 08:24 06/18/17 11:42 06/18/17 11:42 06/18/17 11:42 - Attending Attestation I examined this patient and my medical decision-making was reviewed with the Resident Physician. I agree with the documented findings, disposition and treatment plan as described except to the extent set forth below.
--- NOTE | 2017-06-21 16:17 | Electrocardiograph Report ---
[place] [id number] Test Date: 2017-06-16 Pat Name: Lulu Velásquez Department: 103 Room: [facility] Gender: F Banana Handler: SRIDHAR : [id number] Requested By: Karen Chauhan Order Number: [id number] Reading MD: Greer Sow Measurements Intervals [place] Rate: 83 P: 45 OK: 158 QRS: 39 QRSD: 85 T: 29 QT: 373 QTc: 413 Interpretive Statements SINUS RHYTHM WITH SINUS ARRHYTHMIA NONSPECIFIC T-WAVE ABNORMALITY Electronically Signed On 06-21-2017 15:40:35 EDT by Greer Sow
== END 2017-06-18 12:27 | disposition home or self-care (01) ==
LOC: EMEROO 09:39 → 3NENU 09:39
PROVIDERS: ADMIT Internal Medicine; ATTEND Hospitalist